=== PATIENT | male | born 1975 | race Caucasian/White ===

== ENCOUNTER 2018-12-10 12:17 | Inpatient (IN) | payer OTHER ==
[~2018-12-10] VITALS: Ht 182.9 cm; Wt 90.0 kg
[~2018-12-10 12:17] MED LIST: ALPR1TAB10 PO; AZIT500T5 PO; CEFD300C37 PO; LACT1CAP24 PO; LISI-167 PO; OXYC5TAB3 PO; TAMS-11 PO
[2018-12-10] MEDS ORDERED: CEFTRIAXONE PMX 1GM/50ML 50 ML IVPB ONE (12:30)
[2018-12-10] MEDS ORDERED: SODIUM CHLORIDE FLUSH 10ML SYR IVF ONE (12:30)
[2018-12-10] MEDS ORDERED: ALBUTEROL SULFATE 2.5MG/0.5ML ONE (12:30)
[2018-12-10] MEDS ORDERED: AZITHROMYCIN 500 MG in SODIUM CHLORIDE 0.9% 250 ML IVPB ONE (12:30)
[2018-12-10] MEDS ORDERED: ALBUTEROL/IPRATROPIUM 2.5MG/0.5MG, 3 ML ONE (12:30)
[2018-12-10] MEDS ORDERED: ALBUTEROL SULFATE 2.5MG/0.5ML NPPB PRN (12:30)
[2018-12-10] MEDS ORDERED: ALBUTEROL/IPRATROPIUM 2.5MG/0.5MG, 3 ML NPPB SCH (12:30)
--- NOTE | 2018-12-10 12:48 | NUR ---
Note chelsea in EDM - 12/10/18 at 1250 by ISABELA PT WAS SENT FROM DOCTOR'S OFFICE. SPO2 WAS 70'S WITH RA AT DOCTOR'S OFFICE. C/O SOB X A FEW DAYS.
--- NOTE | 2018-12-10 12:49 | NUR ---
PT WAS SENT FROM DOCTOR'S OFFICE. SPO2 WAS 70'S WITH RA AT DOCTOR'S OFFICE. C/O SOB X A FEW DAYS. PT'S AOX4. RESPS EVEN AND UNLABORED. ALL MONITORS IN PLACE. SINUS TACHY ON PROCUREMENT BUYER RATE 100-110'S AT THIS TIME. PT'S SPO2 IS >95% WITH 8L VIA OXY MASK AT THIS TIME. RT AT BEDSIDE.
[2018-12-10 12:52] LABS: O2 FLOW 8 L/min
[2018-12-10 12:53] LABS: MEAN CORPUSCULAR HEMOGLOBIN 29.4 pg (27.5-34.5); MEAN CORPUSCULAR HGB CONC 32.9 g/dL (33.2-36.2); MEAN CORPUSCULAR VOLUME 89.3 fL (81-97); MEAN PLATELET VOLUME 9.5 fL (7.4-10.4); PLATELET COUNT 213 x10^3/uL (130-400); RED CELL DISTRIBUTION WIDTH 14.6 % (9.4-14.8)
[2018-12-10] MEDS ORDERED: CEFTRIAXONE PMX 1GM/50ML 50 ML ONE (12:55)
--- NOTE | 2018-12-10 13:00 | NUR ---
ABX INFUSING AFTER BLOOD CULTURE X 2. PT TOLERATED WELL.
[2018-12-10 13:04] LABS: ALANINE AMINOTRANSFERASE 17 U/L (12-78); ALBUMIN 3.1 g/dL (3.4-5.0); ANION GAP 6 mmol/L (5-15); CALCIUM 8.7 mg/dL (8.5-10.1); CHLORIDE 103 mmol/L (98-107)
[2018-12-10 13:08] LABS: ALKALINE PHOSPHATASE 90 U/L (45-117); BILIRUBIN,TOTAL 0.6 mg/dL (0.2-1.0); CREATININE 1.17 mg/dL (0.7-1.3)
[2018-12-10 13:35] LABS: MD YES
[2018-12-10 13:36] LABS: LYMPH#(MANUAL) 2.86 x10^3/uL (1-3.4); LYMPHS% (MANUAL) 14 % (22-44); MONOS#(MANUAL) 1.02 x10^3/uL (0.3-2.7); MONOS% (MANUAL) 5 % (2-9); REACTIVE LYMPHS % (MANUAL) 1 % (0-0)
[2018-12-10 13:37] LABS: BAND#(MANUAL) 1.43 x10^3/uL; BANDS%(MANUAL) 7 % (0-7); SEG#(MANUAL) 14.89 x10^3/uL (1.8-6.8); SEGS% (MANUAL) 73 % (42-75)
[2018-12-10 13:38] LABS: <PLATELET ESTIMATE> ADEQUATE; <RBC MORPHOLOGY> NORMAL; LARGE PLATELETS 1+
--- NOTE | 2018-12-10 13:49 | NUR ---
ABX INFUSING AT THIS TIME. PT TOLERATED WELL.
[2018-12-10] MEDS ORDERED: SODIUM CHLORIDE FLUSH 10ML SYR IVF PRN (14:00)
--- NOTE | 2018-12-10 14:10 | NUR ---
PT REQUESTING PAIN MED AT THIS TIME. PT C/O ALL OVER THE BODAY PAIN RATE 8/10 AT THIS TIME. EDMD NOTIFIED.
[2018-12-10] MEDS ORDERED: HYDROmorphone 2 MG/ML, 1ML ONE (14:18)
[2018-12-10] MEDS ORDERED: ONDANSETRON 2MG/ML, 2ML ONE (14:18)
--- NOTE | 2018-12-10 14:23 | NUR ---
PT MEDICATED PER EMAR FOR PAIN. PT TOLERATED WELL.
[2018-12-10] MEDS ORDERED: HYDROmorphone 2 MG/ML, 1ML IVPush PRN (14:30)
[2018-12-10] MEDS ORDERED: ONDANSETRON 2MG/ML, 2ML IVPush ONE (14:30)
[2018-12-10] MEDS: SODIUM CHLORIDE 0.9% 1,000 ML IV SCH ×2 (15:15→17:53)
--- NOTE | 2018-12-10 15:27 | NUR ---
PT RESTING IN GURNEY. PT'S AOX4. RESPS EVEN AND UNLABORED. HOSPITALIST AT BEDSIDE TO EVALUATE AT THIS TIME.
[2018-12-10] MEDS ORDERED: ONDANSETRON 2MG/ML, 2ML IVPush PRN (15:30)
[2018-12-10] MEDS ORDERED: METHOCARBAMOL 500 MG TABLET PO PRN (15:30)
[2018-12-10] MEDS ORDERED: KETOROLAC 30 MG/1 ML IV PRN (15:30)
[2018-12-10] MEDS ORDERED: LIDODERM 5% PATCH TD PRN (15:30)
[2018-12-10] MEDS ORDERED: IBUPROFEN 600 MG TABLET PO PRN (15:30)
[2018-12-10] MEDS ORDERED: ONDANSETRON ODT 4 MG PO PRN (15:30)
[2018-12-10] MEDS ORDERED: ACETAMINOPHEN 325 MG TABLET PO PRN (15:30)
--- NOTE | 2018-12-10 15:49 | NUR ---
report given to kirit estrella(platform material handling supervisor). all questions answered.
--- NOTE | 2018-12-10 16:46 | NUR ---
report given to petros estrella. all questions answered.
[2018-12-10] MEDS ORDERED: CEFTRIAXONE PMX 1GM/50ML 50 ML IV SCH (18:00)
[2018-12-10] MEDS: OXYcodone IR 30 MG TABLET PO PRN (18:03)
[2018-12-10] MEDS: KETOROLAC 30 MG/1 ML IV PRN (18:03)
[2018-12-10 19:08] VITALS: BP 124/73
[2018-12-10] MEDS: DOXYCYCLINE 100 MG in DEXTROSE 5% 250 ML IV SCH (19:32)
[2018-12-10] MEDS: ENOXAPARIN 40 MG/0.4 ML SQ SCH (19:33)
[2018-12-10] MEDS: ALPRazolam 1MG TAB PO SCH (19:33)
[2018-12-10 21:30] LABS: RAPID INFLUENZA A Negative (Negative); RAPID INFLUENZA B Negative (Negative)
[2018-12-11 01:33] VITALS: BP 118/69
[2018-12-11] MEDS: SODIUM CHLORIDE 0.9% 1,000 ML IV SCH ×3 (02:41→16:58)
[2018-12-11 05:06] LABS: CHLORIDE 109 mmol/L (98-107)
[2018-12-11 05:10] LABS: BASOPHILS # (AUTO) 0.17 x10^3/uL (0-0.1); BASOPHILS % (AUTO) 1 % (0-1); EOSINOPHILS # (AUTO) 0.25 x10^3/uL (0-0.4); EOSINOPHILS % (AUTO) 2 % (1-7); LYMPHOCYTES # (AUTO) 1.93 x10^3/uL (1-3.4); LYMPHOCYTES % (AUTO) 16 % (22-44); MD NO; MEAN CORPUSCULAR HEMOGLOBIN 29.6 pg (27.5-34.5); MEAN CORPUSCULAR VOLUME 89.8 fL (81-97); MEAN PLATELET VOLUME 9.1 fL (7.4-10.4); MONOCYTES # (AUTO) 0.57 x10^3/uL (0.2-0.8); MONOCYTES % (AUTO) 5 % (2-9); NEUTROPHILS # (AUTO) 8.92 x10^3/uL (1.8-6.8); NEUTROPHILS % (AUTO) 75 % (42-75); PLATELET COUNT 153 x10^3/uL (130-400); RED BLOOD COUNT 4.28 x10^6/uL (4.38-5.82); RED CELL DISTRIBUTION WIDTH 14.4 % (9.4-14.8)
[2018-12-11 05:14] LABS: ALANINE AMINOTRANSFERASE 12 U/L (12-78); ALBUMIN 2.3 g/dL (3.4-5.0); ALKALINE PHOSPHATASE 67 U/L (45-117); ANION GAP 1 mmol/L (5-15); BILIRUBIN,TOTAL 0.5 mg/dL (0.2-1.0); CALCIUM 7.9 mg/dL (8.5-10.1); CREATININE 1.01 mg/dL (0.7-1.3); TOTAL PROTEIN 5.2 g/dL (6.4-8.2)
[2018-12-11] MEDS: KETOROLAC 30 MG/1 ML IV PRN (06:37)
[2018-12-11] MEDS: OXYcodone IR 30 MG TABLET PO PRN ×3 (06:37→18:30)
[2018-12-11] MEDS: ALBUTEROL SULFATE 2.5 MG/3 ML NPPB SCH ×2 (07:00→10:38)
[2018-12-11 07:46] VITALS: BP 154/77
[2018-12-11] MEDS: DOXYCYCLINE 100 MG in DEXTROSE 5% 250 ML IV SCH ×2 (08:03→19:51)
[2018-12-11] MEDS: ALPRazolam 1MG TAB PO SCH ×2 (08:35→19:51)
[2018-12-11 11:45] LABS: FIO2 45 %
[2018-12-11 12:59] VITALS: BP 156/92
[2018-12-11] MEDS: CEFTRIAXONE PMX 1GM/50ML 50 ML IV SCH (13:09)
[2018-12-11] MEDS ORDERED: ALBUTEROL SULFATE 2.5 MG/3 ML NPPB PRN (15:30)
[2018-12-11] MEDS: ENOXAPARIN 40 MG/0.4 ML SQ SCH ×2 (18:30→18:38)
[2018-12-11 19:48] VITALS: BP 151/90
[2018-12-12 01:12] VITALS: BP 147/86
[2018-12-12] MEDS: SODIUM CHLORIDE 0.9% 1,000 ML IV SCH (01:53)
[2018-12-12] MEDS: OXYcodone IR 30 MG TABLET PO PRN ×3 (03:18→19:52)
[2018-12-12 06:09] LABS: BASOPHILS # (AUTO) 0.04 x10^3/uL (0-0.1); BASOPHILS % (AUTO) 1 % (0-1); EOSINOPHILS # (AUTO) 0.41 x10^3/uL (0-0.4); EOSINOPHILS % (AUTO) 5 % (1-7); LYMPHOCYTES # (AUTO) 1.43 x10^3/uL (1-3.4); LYMPHOCYTES % (AUTO) 16 % (22-44); MD NO; MEAN CORPUSCULAR HEMOGLOBIN 29.7 pg (27.5-34.5); MEAN CORPUSCULAR HGB CONC 33.2 g/dL (33.2-36.2); MEAN CORPUSCULAR VOLUME 89.2 fL (81-97); MONOCYTES # (AUTO) 0.44 x10^3/uL (0.2-0.8); MONOCYTES % (AUTO) 5 % (2-9); NEUTROPHILS # (AUTO) 6.59 x10^3/uL (1.8-6.8); NEUTROPHILS % (AUTO) 74 % (42-75); PLATELET COUNT 164 x10^3/uL (130-400); RED BLOOD COUNT 3.98 x10^6/uL (4.38-5.82); RED CELL DISTRIBUTION WIDTH 14.4 % (9.4-14.8)
[2018-12-12 06:18] LABS: ANION GAP 6 mmol/L (5-15); CALCIUM 8.1 mg/dL (8.5-10.1); CHLORIDE 112 mmol/L (98-107); CREATININE 0.84 mg/dL (0.7-1.3)
[2018-12-12 07:36] VITALS: BP 133/78
[2018-12-12] MEDS: DOXYCYCLINE 100 MG in DEXTROSE 5% 250 ML IV SCH ×2 (07:38→19:02)
[2018-12-12] MEDS: ALPRazolam 1MG TAB PO SCH ×2 (08:04→21:15)
[2018-12-12] MEDS: CEFTRIAXONE PMX 1GM/50ML 50 ML IV SCH (12:09)
[2018-12-12 13:43] VITALS: BP 140/74
[2018-12-12 19:12] VITALS: BP 149/92
[2018-12-13 01:12] VITALS: BP 109/72
[2018-12-13] MEDS: ALPRazolam 1MG TAB PO SCH ×2 (07:26→21:00)
[2018-12-13] MEDS: DOXYCYCLINE 100 MG in DEXTROSE 5% 250 ML IV SCH ×2 (07:26→18:19)
[2018-12-13] MEDS: OXYcodone IR 30 MG TABLET PO PRN ×3 (07:28→22:58)
[2018-12-13 07:32] VITALS: BP 162/97
[2018-12-13 12:27] VITALS: BP 169/107
[2018-12-13] MEDS: CEFTRIAXONE PMX 1GM/50ML 50 ML IV SCH (12:49)
[2018-12-13] MEDS: ENOXAPARIN 40 MG/0.4 ML SQ SCH (21:00)
[2018-12-13 21:04] VITALS: BP 168/100
[2018-12-14 02:33] VITALS: BP 147/87
[2018-12-14] MEDS: DOXYCYCLINE 100 MG in DEXTROSE 5% 250 ML IV SCH (06:34)
[2018-12-14 07:16] VITALS: BP 177/100
[2018-12-14] MEDS: ALPRazolam 1MG TAB PO SCH (07:41)
[2018-12-14] MEDS: OXYcodone IR 30 MG TABLET PO PRN ×2 (07:41→14:45)
[2018-12-14] MEDS ORDERED: LABETALOL 5MG/ML, 20ML IVPush PRN (08:00)
[2018-12-14] MEDS ORDERED: hydrALAzine 20 MG/ML, 1ML IVPush PRN (08:00)
[2018-12-14 09:33] VITALS: BP 162/98
[2018-12-14] MEDS: CEFTRIAXONE PMX 1GM/50ML 50 ML IV SCH (11:35)
[2018-12-14 13:46] VITALS: BP 154/95
[2018-12-14] MEDS ORDERED: CEFD300C37 PO (14:41)
[2018-12-14] MEDS ORDERED: DOXY100T PO (14:41)
== END 2018-12-14 15:56 | disposition home or self-care (01) | DRG 871 ==
LOC: ED 13:39 → EDIP 13:40 → ED 14:13 → 3N 17:25 → DCLOUNGE 12-14 15:40
PROVIDERS: ADMIT Internal Medicine; ATTEND Internal Medicine
DX: A41.9 Sepsis, unspecified organism (principal); J15.9 Unspecified bacterial pneumonia; J96.01 Acute respiratory failure with hypoxia; F11.20 Opioid dependence, uncomplicated; F41.9 Anxiety disorder, unspecified; G89.29 Other chronic pain; I10 Essential (primary) hypertension; Z72.0 Tobacco use; Z87.01 Personal history of pneumonia (recurrent)
CPT/HCPCS: 36415; 36600; 84145; 87400; 99291; J7611; J7613; J7620; 71045; 80048; 80053; 82803; 83605; 83880; 85025; 87040; 87070; 87205; 93005; 94640; G0378; J0456; J0696; J1170; J1650; J1885; J2405; J7060; Q0162; J0360; J7030; J7050

== ENCOUNTER 2019-06-27 10:31 | Emergency (ER) | payer OTHER, SELFPAY ==
[~2019-06-27] VITALS: Ht 180.3 cm; Wt 96.8 kg
[~2019-06-27 10:31] MED LIST changes: +AZIT500T10 PO; -AZIT500T5 PO; +DOXY100T PO
--- NOTE | 2019-06-27 11:08 | NUR ---
PT TO ROOM 34 PER PEDIS. PT C/O SOB AND COUGH X2 WEEKS. PT NOT EXPOSED TO COVID, BUT HAS LONG STANDING HISTORY OF DESATING AND PNEUMONIA. INITIAL OXYGEN READING WAS 98 PERCENT ON ROOM AIR, AFTER BEING EXAMINED BY MD. PT NOW RESTING FOR 10 MINUTES, AND OXYGEN LEVEL DROPPED TO MID 8O'S. OXYGEN APPLIED. PT PLACED ON MONITOR, COVID TEST DONE, EKG DONE, GOWN ON AND CALL LIGHT IN REACH. WILL CONTINUE TO MONITOR PATIENT.
[2019-06-27 12:12] LABS: BASOPHILS # (AUTO) 0.03 x10^3/uL (0-0.1); BASOPHILS % (AUTO) 1 % (0-1); EOSINOPHILS # (AUTO) 0.27 x10^3/uL (0-0.4); EOSINOPHILS % (AUTO) 5 % (1-7); LYMPHOCYTES # (AUTO) 1.28 x10^3/uL (1-3.4); LYMPHOCYTES % (AUTO) 21 % (22-44); MD NO; MEAN CORPUSCULAR HEMOGLOBIN 29.3 pg (27.5-34.5); MEAN CORPUSCULAR HGB CONC 33.2 g/dL (33.2-36.2); MEAN CORPUSCULAR VOLUME 88.2 fL (81-97); MEAN PLATELET VOLUME 9.1 fL (7.4-10.4); MONOCYTES # (AUTO) 0.31 x10^3/uL (0.2-0.8); MONOCYTES % (AUTO) 5 % (2-9); NEUTROPHILS # (AUTO) 4.15 x10^3/uL (1.8-6.8); NEUTROPHILS % (AUTO) 69 % (42-75); PLATELET COUNT 207 x10^3/uL (130-400); RED BLOOD COUNT 5.32 x10^6/uL (4.38-5.82); RED CELL DISTRIBUTION WIDTH 15.3 % (9.4-14.8)
--- NOTE | 2019-06-27 12:12 | NUR ---
PT LYING STILL IN BED, BP REMAINS HIGH, NOTE SENT TO MD. PT REMAINS STABLE.
[2019-06-27 12:18] LABS: ALBUMIN 3.8 g/dL (3.4-5.0); ANION GAP 5 mmol/L (5-15); CALCIUM 8.7 mg/dL (8.5-10.1); CHLORIDE 104 mmol/L (98-107)
[2019-06-27 12:21] LABS: ALANINE AMINOTRANSFERASE 24 U/L (12-78); ALKALINE PHOSPHATASE 119 U/L (45-117); BILIRUBIN,TOTAL 0.4 mg/dL (0.2-1.0); TOTAL PROTEIN 7.2 g/dL (6.4-8.2)
[2019-06-27 13:35] VITALS: BP 161/100
--- NOTE | 2019-06-27 13:59 | NUR ---
CONNIE RN IN TO DISCHARGE PATIENT. PT GIVEN DISCHARGE INSTRUCTIONS, AND FOLLOW UP TIPS. PT AMBULATED OUT OF ED PER PEDIS.
== END 2019-06-27 14:03 | disposition home or self-care (01) ==
LOC: ED 10:59
DX: R05 Cough (principal); Z20.828 Contact with and (suspected) exposure to other viral communicable diseases; J20.9 Acute bronchitis, unspecified; G89.29 Other chronic pain; R06.02 Shortness of breath
CPT/HCPCS: 36415; 71045; 80053; 85025; 93005; 99285; U0001

== ENCOUNTER 2019-10-28 11:00 | Emergency (ER) | payer MEDICAID, OTHER ==
[~2019-10-28] VITALS: Ht 182.9 cm; Wt 95.0 kg
[2019-10-28 11:26] VITALS: BP 159/108
[2019-10-28] MEDS ORDERED: KETOROLAC 30 MG/1 ML ONE (11:39)
[2019-10-28] MEDS ORDERED: DIAZEPAM 5 MG TABLET ONE (11:39)
--- NOTE | 2019-10-28 11:45 | NUR ---
pt medicated per emar. pt tolerated well.
[2019-10-28] MEDS ORDERED: DIAZEPAM 5 MG TABLET PO ONE (12:00)
[2019-10-28] MEDS ORDERED: KETOROLAC 30 MG/1 ML IM ONE (12:00)
--- NOTE | 2019-10-28 12:32 | NUR ---
Pt resting in bed, no discomfort noted.
--- NOTE | 2019-10-28 13:12 | NUR ---
Patient given discharge instructions and they have confirmed that they understand the instructions.
== END 2019-10-28 13:13 | disposition home or self-care (01) ==
LOC: ED 13:12
DX: M54.41 Lumbago with sciatica, right side (principal); F15.10 Other stimulant abuse, uncomplicated; G89.29 Other chronic pain
CPT/HCPCS: 96372; 99283; J1885